=== PATIENT | female | born 1985 | race African-American/Black ===

== ENCOUNTER 2024-09-10 18:20 | Emergency (ER) | payer OTHER ==
[~2024-09-10] VITALS: Ht 170.2 cm; Wt 88.0 kg
[2024-09-10 20:25] VITALS: BP 128/66; TEMP 97.8; O2SAT 100
== END 2024-09-10 20:25 | disposition home or self-care (01) ==
LOC: ER 18:28
DX: M25.551 Pain in right hip (principal); M54.6 Pain in thoracic spine; Z88.7 Allergy status to serum and vaccine; V43.62XA Car passenger injured in collision with other type car in traffic accident, initial encounter; Y93.89 Activity, other specified; Y92.488 Other paved roadways as the place of occurrence of the external cause; Y99.8 Other external cause status
CPT/HCPCS: A4606; A4663